=== PATIENT | female | born 1970 | race Caucasian/White ===

== ENCOUNTER 2016-11-11 14:06 | Emergency (ER) | payer OTHER ==
[~2016-11-11] VITALS: Ht 152.4 cm; Wt 87.0 kg
[~2016-11-11 14:06] MED LIST: ATOR-22 PO; ATV1 PO; BUPR100T4 PO; CYCL10TA6 PO; FERR325T51 PO; FLUO20CA35 PO; HYDR25TA4 PO; LISI5TAB PO; LORA0.5T12 PO; NRN/300 PO; OXYC1TAB3 PO; POTA1080 PO; RXC5 PO; SITA100T3 PO; SUMA50TA15 PO; VITAMIN B2 PO
[2016-11-11 14:10] VITALS: Ht 152.4 cm; Wt 87.0 kg
[2016-11-11] MEDS ORDERED: MoRPHine SULFATE 10 MG/ML CARP/VIAL IV STA (14:36)
[2016-11-11] MEDS ORDERED: ONDANSETRON INJ 2 MG/ML 2 ML VIAL IV STA (14:36)
[2016-11-11 15:18] LABS: BASO % 0.3 %; BASO ABS # 0.02 K/uL (0-0.2); COMPLETE YES; EOS % 2.2 %; HEMATOCRIT 38.4 % (37-47); IG% 0.6 %; LYMPH ABS # 2.15 K/uL (1.2-3.4); MEAN CORPUSCULAR HEMOGLOBIN 31.9 pg (25-34); MEAN CORPUSCULAR HGB CONC 33.6 g/dl (32-36); MEAN PLATELET VOLUME 9.7 fL (7.4-10.4); MONO % 8.8 %; NEUT % 57.1 %; PLATELET COUNT 330 K/uL (130-400); RED BLOOD COUNT 4.04 M/uL (4.2-5.4); WHITE BLOOD COUNT 6.93 K/uL (4.8-10.8)
[2016-11-11 15:25] LABS: URINE APPEARANCE CLEAR (CLEAR); URINE BILIRUBIN NEG (NEG); URINE COLOR DK YELLOW; URINE EPITHELIAL CELL AUTO >30 /lpf (0-5); URINE NITRITE NEG (NEG); URINE PH 6.5 (4.5-7.5); URINE SPECIFIC GRAVITY 1.037 (1.000-1.030); UROBILINOGEN NEG (NEG); ZZUR CULT IF INDIC CLEAN CATCH NO
--- NOTE | 2016-11-11 15:27 | EMERGENCY ROOM VISIT NOTE ---
History First contact with patient: 14:16 Chief Complaint: NEURO SYMPTOMS Stated Complaint: STROKE PROTOCOL Nursing Triage Summary: PT STATES MIGRAINE SINCE SAT.(POSSIBLY PASSED OUT PT STATES "I DONT KNOW IF I PASSED OUT OR WHAT I JUST COLLAPSED ON THE BED") PT REPORTS CHANGE IN MEDICATION PT STATES SHE HAS LEFT SIDED NUMBNESS BURNING IN FOOT PT STATES SHE HAS HAD SURGERY DONE BY [facility] PT STATES SHE HAS HX OF TIAS History of Present Illness The patient is a 46 year old female who presents to the Emergency Room with multiple complaints. The patient states that 4 days ago, she was camping and while she was eating she became nauseous and dizzy. She states that her family members helped her to bed. She is unsure if she just fell asleep or if she passed out. The patient has had a "migraine" since then. She additionally reports a generalized chest discomfort, nausea and dizziness. She states that 2 days ago, she developed a burning sensation in her left leg and foot. She reports that she typically has no feeling in her left leg or foot due to a previous back surgery, but she now has a feeling of painful pins and needles. She also reports that she developed pins and needles in her left arm 2 days ago. She states she has had intermittent numbness in the left side of her face. The patient reports a history of 3 separate TIAs in 2012, 2014 in 2015. She has been seen at [facility] for these and states that at one time, she was hospitalized at [facility] in [place]. She reports that when she was at [facility], she was first diagnosed with migraines. She reports left-sided back pain consistent with her chronic back pain. She has a history of kidney stones, type 2 diabetes (medication controlled), and a PFO. She is Dr. Solis for yearly echocardiograms. She denies any history of CVA but does report a family history of CVA. She reports a history of hypertension and high cholesterol. She does not smoke. The patient denies any weakness of her extremities, blurred vision, slurred speech or confusion. She denies any neck pain/stiffness, fevers/chills or recent illness. Review of Systems A complete 10 point review of systems was reviewed with the patient with pertinent positives and negatives as per history of present illness. All else were negative. Past Medical/Surgical History Medical Problems: (1) Back pain with radiation (2) Diabetes mellitus, type II (3) Hyperlipidemia (4) Hypertension (5) Kidney stones (6) Low back pain (7) Lumbar back pain (8) Lumbar stenosis with neurogenic claudication (9) Patent foramen ovale Social History Smoking Status: Never Smoker Alcohol Use: none Housing Status: lives with family Current/Historical Medications Scheduled Amitriptyline Hcl (Elavil), 25 MG PO HS Aspirin (Aspirin), 325 MG PO QAM Atorvastatin (Lipitor), 20 MG PO QPM Duloxetine HCl (Cymbalta), 60 MG PO BID Empagliflozin (Jardiance), 10 MG PO DAILY Ferrous Sulfate (Iron), 1 TAB PO DAILY Fluoxetine Hcl (Prozac), 40 MG PO DAILY Glimepiride (Amaryl), 2 MG PO DAILY Hydrochlorothiazide (Hctz), 25 MG PO QAM Lisinopril (Prinivil), 5 MG PO DAILY Magnesium Oxide (Mag-Ox), 400 MG PO DAILY Metformin Hcl (Glucophage), 1,000 MG PO BID Potassium Citrate (Alkalinizer (Potassium Citrate ER), 1 TAB PO TID Pregabalin (Lyrica), 50 MG PO TID Riboflavin (Riboflavin), 200 MG PO AMPM Sitagliptin Phosphate (Januvia), 100 MG PO DAILY Scheduled PRN Benzonatate (Tessalon Perles), 1 CAP PO TID PRN for Cough Fluticasone Propionate (Nasal) (Flonase Allergy Relief), 2 SPRAYS GLEN DAILY PRN for Nasal Congestion Guaifenesin/Codeine (Robitussin-Ac Syrup), 5 ML PO Q4 PRN for Cough Methocarbamol (Robaxin), 500 MG PO TID PRN for Muscle Spasms Allergies Coded Allergies: Sulfamethoxazole w/Trimethoprim (Verified Allergy, Unknown, Nausea, Neurologic changes, 11/11/16) Topiramate (Unverified Adverse Reaction, Intermediate, Nephrolithiasis, ) Per cardiology notes. Physical Exam Vital Signs Date Time Temp Pulse Resp B/P (MAP) Pulse Ox O2 Delivery O2 Flow Rate FiO2 11/11/16 19:09 36.8 75 18 103/64 97 11/11/16 18:10 76 18 102/61 100 Room Air 11/11/16 16:00 77 114/77 94 11/11/16 14:10 36.8 93 18 116/62 99 Room Air Physical Exam VITALS: Vitals are noted on the nurse's note and reviewed by myself. Vital signs stable. GENERAL: This is a 46-year-old female, in no acute distress, nondiaphoretic, well-developed well-nourished. SKIN: The skin was without rashes, erythema, edema, or bruising. HEAD: Normocephalic atraumatic. EARS: External auditory canals clear, tympanic membranes pearly vaughan without erythema or effusion bilaterally. EYES: Pupils equal round and reactive to light and accommodation. Conjunctivae without injection, sclerae without icterus. Extraocular movements intact. MOUTH: Mucous membranes moist. Tongue does not deviate. NECK: Supple without nuchal rigidity. No lymphadenopathy. HEART: Regular rate and rhythm without murmurs gallops or rubs. LUNGS: Clear to auscultation bilaterally without wheezes, rales or rhonchi. ABDOMEN: Positive bowel sounds x 4. Soft, nontender to palpation. MUSCULOSKELETAL: Full range of motion in all extremities. Strength 5/5 throughout bilateral upper and lower extremities. NEURO: Patient was alert and oriented to person place and time. Normal sensation to light and sharp touch. No focal neurological deficits. Normal finger to nose testing. Normal rapid alternating movements. Negative Romberg and pronator drift. Medical Decision & Procedures ER Provider Diagnostic Interpretation: CHEST ONE VIEW PORTABLE FINDINGS: Low lung volumes with mild elevation of the right hemidiaphragm. The heart is normal in size. No pleural effusions. No pneumothorax. The right basilar linear densities favor subsegmental atelectasis or scarring. The left lung is clear. IMPRESSION: Low lung volumes with right basilar subsegmental atelectasis or scarring. CT OF THE HEAD WITHOUT CONTRAST FINDINGS: No acute intracranial hemorrhage, midline shift or mass effect is present. Brain volume is normal. Ventricular system is normal. Basilar cisterns are patent. There are no extra-axial collections. Vaughan-white differentiation is maintained. There is no calvarial fracture. Visualized portions of the mastoid air cells are clear. A suspected right maxillary sinus mucous retention cyst is partially imaged on this exam. IMPRESSION: No acute intracranial findings. MRI OF THE BRAIN WITHOUT AND WITH IV CONTRAST FINDINGS: Sagittal T1, axial diffusion, proton density and T2 weighted axial, coronal FLAIR, and pre and post axial T1-weighted images were acquired. These were supplemented with post gadolinium coronal T1 weighted images. No intra or extra-axial mass lesions are visualized. There is a 2 mm focus of increased signal on diffusion-weighted images within the right posterior pontomedullary junction. This may be artifactual. There is otherwise no evidence of acute or subacute infarction. There is no evidence of ventricular dilatation. Proton density T2-weighted and FLAIR images reveal a 4 mm focus of increased FLAIR signal within the right frontal white matter. This is likely on a small vessel basis. There are no abnormal flow voids. There is no evidence of pathologic enhancement. There is a right maxilla sinus retention cyst. IMPRESSION: 1. No evidence of intracranial mass 2. An equivocal 2 mm focus of restricted water diffusion within the right posterior pontomedullary junction, likely is artifactual. There is otherwise no evidence of acute or subacute infarction 3. Nonspecific 4 mm focus of increased FLAIR signal within the right frontal white matter, likely on a small vessel basis Laboratory Results 11/11/16 15:00 Red Blood Count 4.04, Mean Corpuscular Volume 95.0, Mean Corpuscular Hemoglobin 31.9, Mean Corpuscular Hemoglobin Concent 33.6, Mean Platelet Volume 9.7, Neutrophils (%) (Auto) 57.1, Lymphocytes (%) (Auto) 31.0, Monocytes (%) (Auto) 8.8, Eosinophils (%) (Auto) 2.2, Basophils (%) (Auto) 0.3, Neutrophils # (Auto) 3.96, Lymphocytes # (Auto) 2.15, Monocytes # (Auto) 0.61, Eosinophils # (Auto) 0.15, Basophils # (Auto) 0.02 11/11/16 15:00 Test 11/11/16 15:00 White Blood Count 6.93 K/uL (4.8-10.8) Red Blood Count 4.04 M/uL (4.2-5.4) Hemoglobin 12.9 g/dL (12.0-16.0) Hematocrit 38.4 % (37-47) Mean Corpuscular Volume 95.0 fL (80-100) Mean Corpuscular Hemoglobin 31.9 pg (25-34) Mean Corpuscular Hemoglobin Concent 33.6 g/dl (32-36) Platelet Count 330 K/uL (130-400) Mean Platelet Volume 9.7 fL (7.4-10.4) Neutrophils (%) (Auto) 57.1 % Lymphocytes (%) (Auto) 31.0 % Monocytes (%) (Auto) 8.8 % Eosinophils (%) (Auto) 2.2 % Basophils (%) (Auto) 0.3 % Neutrophils # (Auto) 3.96 K/uL (1.4-6.5) Lymphocytes # (Auto) 2.15 K/uL (1.2-3.4) Monocytes # (Auto) 0.61 K/uL (0.11-0.59) Eosinophils # (Auto) 0.15 K/uL (0-0.5) Basophils # (Auto) 0.02 K/uL (0-0.2) RDW Standard Deviation 46.2 fL (36.4-46.3) RDW Coefficient of Variation 13.2 % (11.5-14.5) Immature Granulocyte % (Auto) 0.6 % Immature Granulocyte # (Auto) 0.04 K/uL (0.00-0.02) Prothrombin Time 9.6 SECONDS (9.0-12.0) Prothromb Time International Ratio 0.9 (0.9-1.1) Activated Partial Thromboplast Time 24.8 SECONDS (21.0-31.0) Partial Thromboplastin Ratio 1.0 Urine Color DK YELLOW Urine Appearance CLEAR (CLEAR) Urine pH 6.5 (4.5-7.5) Urine Specific [place] 1.037 (1.000-1.030) Urine Protein NEG (NEG) Urine Glucose (UA) 3+ (NEG) Urine Ketones NEG (NEG) Urine Occult Blood 3+ (NEG) Urine Nitrite NEG (NEG) Urine Bilirubin NEG (NEG) Urine Urobilinogen NEG (NEG) Urine Leukocyte Esterase NEG (NEG) Urine WBC (Auto) 1-5 /hpf (0-5) Urine RBC (Auto) 0-4 /hpf (0-4) Urine Hyaline Casts (Auto) 1-5 /lpf (0-5) Urine Epithelial Cells (Auto) >30 /lpf (0-5) Urine Bacteria (Auto) NEG (NEG) Urine Test NEG (NEG) Anion Gap 6.0 mmol/L (3-11) Est Creatinine Clear Calc Drug Dose 85.2 ml/min Estimated GFR () 101.8 Estimated GFR (Non- 87.8 BUN/Creatinine Ratio 14.7 (10-20) Calcium Level 8.7 mg/dl (8.5-10.1) Total Creatine Kinase 47 U/L (26-192) Creatine Kinase MB 0.8 ng/ml (0.5-3.6) Creatine Kinase MB Ratio 1.7 (0-3.0) Troponin I < 0.015 ng/ml (0-0.045) Urine Opiates Screen NEG (NEG) Urine Methadone, Qualitative NEG (NEG) Urine Barbiturates NEG (NEG) Urine Phencyclidine (PCP) Level NEG (NEG) Ur Amphetamine/Methamphetamine NEG (NEG) MDMA (Ecstasy) Screen NEG (NEG) Urine Benzodiazepines Screen NEG (NEG) Urine Cocaine Metabolite NEG (NEG) Urine Marijuana (THC) NEG (NEG) Medications Administered Medications (Trade) Dose Ordered Sig/Kaitlynn Route Start Time Stop Time Status Last Admin Dose Admin Morphine Sulfate (MoRPHine SULFATE INJ) 6 mg NOW STAT IV 11/11/16 14:36 11/11/16 14:39 DC 11/11/16 15:06 6 MG Ondansetron HCl (Zofran Inj) 4 mg NOW STAT IV 11/11/16 14:36 11/11/16 14:39 DC 11/11/16 15:05 4 MG Hydromorphone HCl (Dilaudid Inj) 1 mg NOW STAT IV 11/11/16 16:22 11/11/16 16:24 DC 11/11/16 17:04 1 MG ECG Rate (beats per minute): 74 Rhythm: normal sinus Findings: no acute ischemic change, no ectopy Change: no significant change ED Course The patient was evaluated as above. Labs were drawn and IV access was obtained. Patient was medicated with [address] of the head was performed and read by radiology as above. Patient was reevaluated and stated her pain had not been relieved at all. She relayed that Dilaudid is the only thing that works for her headaches. 1 mg Dilaudid ordered. MRI of the brain with and without contrast was performed and read by radiology as above. Discharge instructions were reviewed with the patient. The patient verbalized understanding of my assessment and treatment plan and was discharged home in good condition. Medical Decision Differential diagnosis includes CVA, TIA, atypical migraine, malignancy, infection, among others. The patient is a 46-year-old female who presents today complaining of headache and left-sided "numbness." The patient has a normal neurological exam. She has no deficits. Labs revealed no leukocytosis, anemia or electrolyte abnormalities. Urinalysis was not suggestive of infection. Urine was negative. Tox screen was negative. EKG was interpreted by myself and shows a normal sinus rhythm. CT was initially performed and was unremarkable. At that time, MRI was ordered. This was also performed and read by radiology with no acute intracranial abnormalities. I am unsure the cause of the patient' s symptoms but given her history may be atypical migraines. She does have a neurologist and I recommended that she follow-up with them this week for further evaluation. The patient's case was reviewed with Dr. Arciniega, ED attending physician, who agreed with my assessment and treatment plan. Based on the patient's presentation and work up, I feel the patient is stable for outpatient treatment. The patient was educated to return to the emergency department for any worsening of their current condition or new/concerning symptoms. She will follow up with her primary care provider and neurologist. Impression Primary Impression: Headache Departure Information Dispostion Home / Self-Care Condition GOOD Referrals Tahira Mcguire PA-C (PCP) Patient Instructions My [facility] Additional Instructions For pain control, you can use the following [id number]-[id number] medicines (if >12 yo): - Regular strength (325mg/tab) Tylenol (acetaminophen) 2 tabs every 4-6 hours as needed. Do not exceed 12 tablets in a 24 hour period. Avoid taking more than 4 grams (4000 mg) of Tylenol per day. This includes any other sources of acetaminophen you may take on a regular basis. - Regular strength (200 mg/tab) Advil (ibuprofen) 1-2 tabs every 4-6 hours as needed. Do not exceed a dose of 3200 mg per day. Follow-up with your primary care provider and neurologist this week for further evaluation. Your blood pressure was high today. You should have this rechecked by her primary care provider. Problem Qualifiers Primary Impression: Headache Headache type: unspecified Headache chronicity pattern: acute headache Intractability: not intractable Qualified Codes: R51 - Headache
--- NOTE | 2016-11-11 15:27 | DIAGNOSTIC IMAGING REPORT ---
CT OF THE HEAD WITHOUT CONTRAST CLINICAL HISTORY: Left-sided numbness. Headache. COMPARISON STUDY: No previous studies for comparison. CT DOSE: 569.73 mGy.cm TECHNIQUE: Helical axial images of the head were obtained without IV contrast. Automated exposure control was utilized for the study. FINDINGS: No acute intracranial hemorrhage, midline shift or mass effect is present. Brain volume is normal. Ventricular system is normal. Basilar cisterns are patent. There are no extra-axial collections. Vaughan-white differentiation is maintained. There is no calvarial fracture. Visualized portions of the mastoid air cells are clear. A suspected right maxillary sinus mucous retention cyst is partially imaged on this exam. IMPRESSION: No acute intracranial findings. Electronically signed by: Austyn Ozuna M.D. 11/11/2016 3:25 PM Dictated Date/Time: 11/11/2016 3:23 PM
[2016-11-11 15:33] LABS: INR 0.9 (0.9-1.1); PROTHROMBIN TIME (PATIENT) 9.6 SECONDS (9.0-12.0)
[2016-11-11 15:35] LABS: MANUAL MICROSCOPIC REQUIRED? NO; REVIEW REQ? NO
[2016-11-11 15:39] LABS: BLOOD UREA NITROGEN 12 mg/dl (7-18); BUN/CREATININE RATIO 14.7 (10-20); CALCIUM 8.7 mg/dl (8.5-10.1); CARBON DIOXIDE 30 mmol/L (21-32); CHLORIDE 103 mmol/L (98-107); GLUCOSE 110 mg/dl (70-99); POTASSIUM 3.7 mmol/L (3.5-5.1); SODIUM 139 mmol/L (136-145)
--- NOTE | 2016-11-11 15:43 | DIAGNOSTIC IMAGING REPORT ---
CHEST ONE VIEW PORTABLE HISTORY: Atypical chest pain COMPARISON: None. FINDINGS: Low lung volumes with mild elevation of the right hemidiaphragm. The heart is normal in size. No pleural effusions. No pneumothorax. The right basilar linear densities favor subsegmental atelectasis or scarring. The left lung is clear. IMPRESSION: Low lung volumes with right basilar subsegmental atelectasis or scarring. Electronically signed by: Jose A Lynch M.D. 11/11/2016 3:42 PM Dictated Date/Time: 11/11/2016 3:13 PM
[2016-11-11 15:44] LABS: CKMB/CK RATIO 1.7 (0-3.0)
[2016-11-11 16:14] LABS: BENZODIAZEPINE, URINE NEG (NEG); COCAINE,URINE NEG (NEG); PHENCYCLIDINE, URINE NEG (NEG)
[2016-11-11] MEDS ORDERED: HYDROmorphone INJ 1 MG/ML SYR IV STA (16:22)
[2016-11-11] MEDS ORDERED: FERR1TAB23 PO (16:22)
[2016-11-11] MEDS ORDERED: FLUO40CA8 PO (16:22)
[2016-11-11] MEDS ORDERED: RIBO100C PO (16:22)
[2016-11-11] MEDS ORDERED: CYM/60 PO (16:22)
[2016-11-11] MEDS ORDERED: METH500T37 PO (16:22)
[2016-11-11] MEDS ORDERED: LYR50 PO (16:22)
[2016-11-11] MEDS ORDERED: SITA100T3 PO (16:22)
[2016-11-11] MEDS ORDERED: FLUT0.15 NAE (16:31)
[2016-11-11] MEDS ORDERED: GUAISYP4 PO (16:31)
[2016-11-11] MEDS ORDERED: MAGN400T6 PO (16:31)
[2016-11-11] MEDS ORDERED: GLIM2TAB PO (16:31)
[2016-11-11] MEDS ORDERED: BENZ100C84 PO (16:31)
[2016-11-11] MEDS ORDERED: POTA1080 PO (16:31)
[2016-11-11] MEDS ORDERED: LISI-729 PO (16:31)
[2016-11-11] MEDS ORDERED: EMPA1TAB PO (16:31)
[2016-11-11] MEDS ORDERED: GADAVIST IV PRN (18:00)
--- NOTE | 2016-11-11 18:09 | DIAGNOSTIC IMAGING REPORT ---
MRI OF THE BRAIN WITHOUT AND WITH IV CONTRAST CLINICAL HISTORY: Left-sided numbness. History of prior transient ischemic attacks. Migraine, dizziness, nausea. COMPARISON STUDY: Noncontrast head CT dated 11/11/2016 TECHNIQUE: MRI of the brain was performed from the vertex to the skull base utilizing various T1 and T2 weighted sequences. Following the IV administration of 8.5 mL of Gadavist contrast, additional enhanced images were obtained. FINDINGS: Sagittal T1, axial diffusion, proton density and T2 weighted axial, coronal FLAIR, and pre and post axial T1-weighted images were acquired. These were supplemented with post gadolinium coronal T1 weighted images. No intra or extra-axial mass lesions are visualized. There is a 2 mm focus of increased signal on diffusion-weighted images within the right posterior pontomedullary junction. This may be artifactual. There is otherwise no evidence of acute or subacute infarction. There is no evidence of ventricular dilatation. Proton density T2-weighted and FLAIR images reveal a 4 mm focus of increased FLAIR signal within the right frontal white matter. This is likely on a small vessel basis. There are no abnormal flow voids. There is no evidence of pathologic enhancement. There is a right maxilla sinus retention cyst. IMPRESSION: 1. No evidence of intracranial mass 2. An equivocal 2 mm focus of restricted water diffusion within the right posterior pontomedullary junction, likely is artifactual. There is otherwise no evidence of acute or subacute infarction 3. Nonspecific 4 mm focus of increased FLAIR signal within the right frontal white matter, likely on a small vessel basis Electronically signed by: Kike Gilliam M.D. 11/11/2016 6:08 PM Dictated Date/Time: 11/11/2016 6:04 PM
[2016-11-11 19:09] VITALS: BP 103/64; PULSE 75; TEMP 36.8; O2SAT 97
[2016-11-11] MEDS ORDERED: GLC/500 PO (21:41)
[2016-11-11] MEDS ORDERED: ASPI325T45 PO (21:41)
[2016-11-11] MEDS ORDERED: AMIT25TA9 PO (21:41)
[2016-12-09] MEDS ORDERED: CYM/30 PO (13:36)
[2016-12-28] MEDS ORDERED: RXC5 PO (11:53)
== END 2016-11-11 19:10 | disposition home or self-care (01) ==
LOC: C.EDB 14:09
DX: R51 Headache (principal); R20.0 Anesthesia of skin; E11.9 Type 2 diabetes mellitus without complications; E78.5 Hyperlipidemia, unspecified; I10 Essential (primary) hypertension; Z87.442 Personal history of urinary calculi; E78.00 Pure hypercholesterolemia, unspecified; M54.5 Low back pain; M48.06 Spinal stenosis, lumbar region; Z86.73 Personal history of transient ischemic attack (TIA), and cerebral infarction without residual deficits; Z79.82 Long term (current) use of aspirin; Z79.899 Other long term (current) drug therapy

== ENCOUNTER 2016-12-28 06:03 | Inpatient (IN) | payer OTHER ==
[2016-12-09 13:40] VITALS: BMI 38.0
--- NOTE | 2016-12-09 14:19 | PAT Medication Instructions ---
Service Date Dec 09, 2016. Current Home Medication List Amitriptyline Hcl (Elavil), 25 MG PO HS Aspirin (Aspirin), 325 MG PO QAM Atorvastatin (Lipitor), 20 MG PO QPM Duloxetine HCl (Cymbalta), 1 CAP PO BID Empagliflozin (Jardiance), 10 MG PO QAM Ferrous Sulfate (Iron), 1 TAB PO QPM Fluoxetine Hcl (Prozac), 40 MG PO QAM Fluticasone Propionate (Nasal) (Flonase Allergy Relief), 2 SPRAYS GLEN DAILY PRN for Nasal Congestion Glimepiride (Amaryl), 2 MG PO QAM Hydrochlorothiazide (Hctz), 25 MG PO QAM Lisinopril (Prinivil), 5 MG PO QAM Magnesium Oxide (Mag-Ox), 400 MG PO QAM Metformin Hcl (Glucophage), 1,000 MG PO BID Methocarbamol (Robaxin), 500 MG PO TID PRN for Muscle Spasms Potassium Citrate (Alkalinizer (Potassium Citrate ER), 1 TAB PO TID Pregabalin (Lyrica), 50 MG PO TID Riboflavin (Riboflavin), 200 MG PO AMPM Sitagliptin Phosphate (Januvia), 100 MG PO QAM Medication Instructions For Your Scheduled Surgery - Check with surgeon/land appraiser for instructions: Aspirin (Aspirin), 325 MG PO QAM - Hold the following medications 48 hours prior to surgery: Metformin Hcl (Glucophage), 1,000 MG PO BID - Hold the following medications the morning of surgery: Sitagliptin Phosphate (Januvia), 100 MG PO QAM Potassium Citrate (Alkalinizer (Potassium Citrate ER), 1 TAB PO TID Magnesium Oxide (Mag-Ox), 400 MG PO QAM Lisinopril (Prinivil), 5 MG PO QAM Glimepiride (Amaryl), 2 MG PO QAM Hydrochlorothiazide (Hctz), 25 MG PO QAM Empagliflozin (Jardiance), 10 MG PO QAM Methocarbamol (Robaxin), 500 MG PO TID PRN for Muscle Spasms Riboflavin (Riboflavin), 200 MG PO AMPM - Take the following medications the morning of surgery with a sip of water: Pregabalin (Lyrica), 50 MG PO TID Fluticasone Propionate (Nasal) (Flonase Allergy Relief), 2 SPRAYS GLEN DAILY PRN for Nasal Congestion (if needed) Fluoxetine Hcl (Prozac), 40 MG PO QAM Duloxetine HCl (Cymbalta), 1 CAP PO BID - Take the following medications as scheduled the night before surgery: Pregabalin (Lyrica), 50 MG PO TID Potassium Citrate (Alkalinizer (Potassium Citrate ER), 1 TAB PO TID Fluticasone Propionate (Nasal) (Flonase Allergy Relief), 2 SPRAYS GLEN DAILY PRN for Nasal Congestion (if needed) Ferrous Sulfate (Iron), 1 TAB PO QPM Duloxetine HCl (Cymbalta), 1 CAP PO BID Atorvastatin (Lipitor), 20 MG PO QPM Amitriptyline Hcl (Elavil), 25 MG PO HS Methocarbamol (Robaxin), 500 MG PO TID PRN for Muscle Spasms Riboflavin (Riboflavin), 200 MG PO AMPM If you have any questions please call us at [phone] or [phone] or [phone]
[2016-12-28] VITALS (9 sets, daily range): BP systolic 98–130; BP diastolic 58–73; PULSE 72–85; TEMP 36.6–37; O2SAT 94–97; Ht 152.4 cm; Wt 87.0 kg
[~2016-12-28] VITALS: Ht 152.4 cm; Wt 87.0 kg
[~2016-12-28 06:03] MED LIST changes: +AMIT25TA9 PO; +ASPI325T45 PO; -ATV1 PO; -BUPR100T4 PO; +CEFAZOLIN 2000 MG/60 ML D5W IV SCH; -CYCL10TA6 PO; +CYM/30 PO; +EMPA1TAB PO; +FERR1TAB23 PO; -FERR325T51 PO; -FLUO20CA35 PO; +FLUO40CA8 PO; +FLUT0.15 NAE; +GLC/500 PO; +GLIM2TAB PO; +LACTATED RINGER'S 1000ML 1,000 ML IV SCH; +LISI-729 PO; -LISI5TAB PO; -LORA0.5T12 PO; +LYR50 PO; +MAGN400T6 PO; +METH500T37 PO; -NRN/300 PO; -OXYC1TAB3 PO; +RIBO100C PO; -RXC5 PO; -SUMA50TA15 PO; -VITAMIN B2 PO
[2016-12-28] MEDS ORDERED: ZOLP10TA PO (06:39)
[2016-12-28] MEDS ORDERED: PROPOFOL IV EMULSION 10 MG/ML 20 ML VIAL IV ONE (06:45)
[2016-12-28] MEDS ORDERED: ROCURONIUM BROMIDE 10 MG/ML 5 ML VIAL ONE (06:45)
[2016-12-28] MEDS ORDERED: DEXAMETHASONE SOD INJ 4 MG/ML VIAL ONE (06:45)
[2016-12-28] MEDS ORDERED: GLYCOPYRROLATE INJ 0.2 MG/ML VIAL ONE (06:45)
[2016-12-28] MEDS ORDERED: NEOSTIGMINE METHYLSULFATE 1 MG/ML 10ML VIAL ONE (06:45)
[2016-12-28] MEDS ORDERED: ONDANSETRON INJ 2 MG/ML 2 ML VIAL ONE (06:45)
[2016-12-28] MEDS ORDERED: LIDOCAINE HCL 2% 2 ML VIAL (20MG/ML) ONE (06:45)
[2016-12-28] MEDS ORDERED: FENTANYL CITRATE INJ 50 MCG/1 ML 2 ML VIAL ONE ×2 (06:46→09:16)
[2016-12-28] MEDS ORDERED: MIDAZOLAM HCL 1 MG/ML 2ML VIAL ONE (06:46)
[2016-12-28] MEDS ORDERED: BACITRACIN 50000 UNIT VIAL ONE (07:00)
[2016-12-28] MEDS ORDERED: BUPIVACAINE/EPINEPHRINE 0.5% MPF 1:200,000 10 ML VIAL ONE (07:00)
--- NOTE | 2016-12-28 07:24 | History & Physical Bridge Note ---
H&P Re-Evaluation Bridge Note: I have examined the patient, reviewed the History & Physical and in the interval since the performance of the History & Physical I have noted the following changes of clinical significance: No changes noted
--- NOTE | 2016-12-28 07:25 | History and Physical ---
History & Physical Date Dec 28, 2016. Chief Complaint chronic back pain History of Present Illness The patient is a 46 year old female with complaints of Past Medical/Surgical History Medical Problems: (1) Back pain with radiation (2) Diabetes mellitus, type II (3) Hyperlipidemia (4) Hypertension (5) Kidney stones (6) Low back pain (7) Lumbar back pain (8) Lumbar stenosis with neurogenic claudication (9) Patent foramen ovale Additional History Hepatic Disease: No Endocrine Disorder: No Kidney Disease: No Hypertension: No Heart Disease: No Bleeding Tendencies: No Infectious Diseases: No Allergies Coded Allergies: Sulfamethoxazole w/Trimethoprim (Verified Allergy, Unknown, Nausea, Neurologic changes,chest pain, 12/28/16) Topiramate (Verified Adverse Reaction, Intermediate, Nephrolithiasis, 12/28) Per cardiology notes. Home Medications Scheduled Amitriptyline Hcl (Elavil), 25 MG PO HS Aspirin (Aspirin), 325 MG PO QAM Atorvastatin (Lipitor), 20 MG PO QPM Duloxetine HCl (Cymbalta), 1 CAP PO BID Empagliflozin (Jardiance), 10 MG PO QAM Ferrous Sulfate (Iron), 1 TAB PO QPM Fluoxetine Hcl (Prozac), 40 MG PO QAM Glimepiride (Amaryl), 2 MG PO QAM Hydrochlorothiazide (Hctz), 25 MG PO QAM Lisinopril (Prinivil), 5 MG PO QAM Magnesium Oxide (Mag-Ox), 400 MG PO QAM Metformin Hcl (Glucophage), 1,000 MG PO BID Potassium Citrate (Alkalinizer (Potassium Citrate ER), 1 TAB PO TID Pregabalin (Lyrica), 50 MG PO TID Riboflavin (Riboflavin), 200 MG PO AMPM Sitagliptin Phosphate (Januvia), 100 MG PO QAM Scheduled PRN Fluticasone Propionate (Nasal) (Flonase Allergy Relief), 2 SPRAYS GLEN DAILY PRN for Nasal Congestion Methocarbamol (Robaxin), 500 MG PO TID PRN for Muscle Spasms Zolpidem Tartrate (Ambien), 1 TAB PO HS PRN for Sleep Physical Examination Skin: warm/dry, no rash Eyes: normal inspection, EOMI, sclerae normal ENT: normal ENT inspection, pharynx normal Head: normocephalic, atraumatic Neck: supple, no adenopathy, trachea midline Respiratory/Chest: lungs clear, normal breath sounds, no respiratory distress Cardiovascular: regular rate, rhythm, no edema, no murmur Abdomen / GI: normal bowel sounds, non tender Back: normal inspection Extremities: normal inspection, normal range of motion Neurologic/Psych: no motor/sensory deficits, alert, normal reflexes, oriented x 3 Diagnosis chronic back and leg pain Plan of Treatment SCS trial
[2016-12-28] MEDS ORDERED: KETOROLAC TROMETHAMINE 30 MG/ML VIAL ONE (08:30)
--- NOTE | 2016-12-28 08:38 | [facility] Operative Report ---
Operative Report Operative Date Dec 28, 2016. Pre-Operative Diagnosis Chronic Back and Leg Pain Post-Operative Diagnosis Same as preoperative Procedure(s) Performed #1 T10 laminotomy. #2 placement of a 16-lead dorsal column stimulator paddle with temporary leads. Surgeon Dr. Levon Rothman Plant Operations Worker Surgeon(s) Heavenly Crum PA-C Estimated Blood Loss 20ml Findings None Specimens None per surgeon Description of Procedure Patient was met with preoperatively case discussed all questions are dressed. Patient was then taken to the operative suite and after undergoing and the patient placed in a prone position on the Renan table on top of the Samir frame. The thoracal lumbar spine was prepped and draped in normal sterile fashion. With the assistance of fluoroscopy identified the T 1011 interlaminar space. Sharp dissection with the assistance of Bovie cautery performed down to and exposing the interlaminar space at T10-T11. I then performed a midline decompression at T10 11 create enough space to allow paddle lead to be placed. The lead was then placed from a caudal to cephalad fashion we verified our position with fluoroscopy. External leads were then attached sewn into position. Leads were then passed via trocar left flank. We verified their effectiveness and contact. Incision was then copiously irrigated and closed with subcutaneous Vicryl for Monocryl for final skin closure. Sterile dressing was placed the patient was awakened and taken to PACU in stable condition. Please note Heavenly Sanchez was present throughout the entire procedure involved in patient positioning complex portions of the procedure and final skin closure. I attest to the content of the Intraoperative Record and any orders documented therein. Any exceptions are noted below.
[2016-12-28] MEDS ORDERED: MAGNESIUM HYDROXIDE SUSP 30 ML UDC PO PRN (08:45)
[2016-12-28] MEDS ORDERED: ACETAMINOPHEN 500 MG TAB PO PRN (08:45)
[2016-12-28] MEDS ORDERED: ONDANSETRON INJ 2 MG/ML 2 ML VIAL IV PRN ×2 (08:45→09:30)
[2016-12-28] MEDS ORDERED: LORAZEPAM INJ 1 MG in SYRINGE 0.5 ML IV PRN (08:45)
[2016-12-28] MEDS ORDERED: FLUTICASONE PROPIONATE NA SPR 16 GM BTL NAE PRN (08:45)
[2016-12-28] MEDS ORDERED: ACETAMINOPHEN 325 MG TAB PO PRN (08:45)
[2016-12-28] MEDS ORDERED: DO NOT ADMINISTER FLU VACCINE PRN ×3 (08:45)
[2016-12-28] MEDS ORDERED: DO NOT ADMINISTER PNEUMOCOCCAL VACCINE PRN ×2 (08:45)
[2016-12-28] MEDS ORDERED: PHARMACY GLYCEMIC MGMT CONSULT PRN (09:03)
--- NOTE | 2016-12-28 09:29 | Pharmacy Progress Note ---
Glycemic Control Intl Consult Date of Service Dec 28, 2016. Scope Glycemic Pharmacist consulted by Dr Rothman on 12/28/16 for glycemic control and to write orders per [facility] inpatient glycemic control protocol Objective Weight (Kilograms): 87 Accuchecks BSG (last 24hrs): Test 12/28/16 06:25 12/28/16 09:01 Bedside Glucose 135 mg/dl (70-90) 124 mg/dl (70-90) Recent Pertinent Medications Outpatient Anti-diabetic Regimen: * Jardiance 10mg PO daily * Amaryl 2mg PO daily * Januvia 100mg PO daily * Glucophage 1000mg PO BID Risk Factors for Insulin Resistance: * Steroids: Dexamethasone 8mg perioperatively * Infection: cefazolin perioperatively * IVF: LR --> NSS * Recent Surgery: POD #0 spinal cord stimulator trial * Diet: T2DM Assessment & Plan ASSESSMENT: * ADA & AACE recommend a goal blood sugar range 140-180 mg/dl for the majority of critically ill & non-critically ill patients. However, more stringent targets may be selected in individual cases. Will utilize more stringent goal of 100-140mg/dl based on patient age & comorbidities. Additionally, tighter glycemic control is warranted to facilitate wound/infection healing. * Type 2 diabetic who is admitted postoperatively after spinal cord stim trial * BSG prior to surgery - WNL (135mg/dL, 124mg/dL) * Will utilize SQ basal/bolus insulin in addition to oral mediations while admitted for glycemic control postoperatively * parameters based on weight and a stress of 2-3 PLAN FOR INPATIENT GLYCEMIC CONTROL: * Basal insulin * Lantus 15 units SQ x1 dose today with lunch * Re-assess need for ongoing basal insulin in AM * Bolus insulin * NovoLog SQ AC and HS - Correction factor: 20mg/dL/unit - Carb ratio: 1 unit per 6g of CHO consumed - Goal: 100-140mg/dL * Oral medications: * Januvia 100 mg PO daily - start 12/29 * Amaryl 2mg PO daily - start 12/29 * Metformin 1000mg PO BID - start 12/29 * Jardiance - not stocked in pharmacy * A1c - ordered with AM labs on 12/29 * discharge recommendations dependant on this result * Please note that the plan above was derived based on current level of insulin resistance and hospital stress. These recommendations are appropriate for inpatient admission only. Plan of care upon discharge will need to be reassessed to avoid potential outpatient hypo/hyperglycemia. Thank you.
[2016-12-28] MEDS ORDERED: FENTANYL CITRATE INJ 50 MCG/1 ML 2 ML VIAL IV PRN (09:30)
[2016-12-28] MEDS ORDERED: GLUCAGON FOR INJ 1 MG VIAL SQ PRN (09:30)
[2016-12-28] MEDS ORDERED: ATROPINE SULFATE 0.1 MG/ML 5ML SYR IV PRN (09:30)
[2016-12-28] MEDS ORDERED: DEXTROSE 50% 50 ML SYR IV PRN (09:30)
[2016-12-28] MEDS ORDERED: GLUCOSE 40% GEL 15 GM TUBE PO PRN (09:30)
[2016-12-28] MEDS ORDERED: GLUCOSE 10 TABS/TUBE PO PRN (09:30)
[2016-12-28] MEDS ORDERED: EpHEDrine SULFATE INJ 50 MG/ML AMP IV PRN (09:30)
[2016-12-28] MEDS ORDERED: HYDROmorphone INJ 1 MG/ML SYR IV PRN (09:30)
--- NOTE | 2016-12-28 09:31 | Anesthesiology Progress Note ---
Anesthesia Post Op Note Date & Time Dec 28, 2016 at 09:30 Vital Signs Pain Intensity: 4 Vital Signs Past 12 Hours Date Time Temp Pulse Resp B/P (MAP) Pulse Ox O2 Delivery O2 Flow Rate FiO2 12/28/16 09:20 73 17 113/59 94 Nasal Cannula 2 12/28/16 09:10 78 15 105/63 96 Oxymask 4 12/28/16 09:00 81 16 109/69 96 Oxymask 10 12/28/16 08:50 80 14 105/67 96 Oxymask 10 12/28/16 08:43 36.7 60 16 98/78 (75) 90 Oxymask 10 12/28/16 06:39 36.8 85 16 130/58 97 Room Air Notes Mental Status: alert / awake / arousable, participated in evaluation Pt Amnestic to Procedure: Yes Nausea / Vomiting: adequately controlled Pain: adequately controlled Airway Patency, RR, SpO2: stable & adequate BP & HR: stable & adequate Hydration State: stable & adequate Anesthetic Complications: no major complications apparent
[2016-12-28] MEDS ORDERED: HYDROmorphone INJ 2 MG/ML SYR/VIAL IV PRN (09:45)
[2016-12-28] MEDS: SODIUM CHLORIDE 0.9% 1000ML 1,000 ML IV SCH ×2 (10:41→23:13)
[2016-12-28] MEDS: OXYCODONE HCL IR 5 MG TAB (IMMEDIATE RELEASE) PO PRN ×2 (10:41→16:41)
--- NOTE | 2016-12-28 11:36 | DIAGNOSTIC IMAGING REPORT ---
INTRAOPERATIVE THORACOLUMBAR SPINE SINGLE VIEW CLINICAL HISTORY: SPINAL CORD STIM TRIAL COMPARISON STUDY: No previous studies for comparison. FINDINGS: A single intraoperative fluoroscopic spot images provided for interpretation. 9 seconds of fluoroscopic time was utilized. A spinal cord stimulator is visualized. The electrodes extend cephalad to the T8-9 level. IMPRESSION: Intraoperative fluoroscopic spot image demonstrating a spinal cord stimulator Electronically signed by: Kike Gilliam M.D. 12/28/2016 11:35 AM Dictated Date/Time: 12/28/2016 11:34 AM
[2016-12-28] MEDS ORDERED: RXC5 PO (11:53)
--- NOTE | 2016-12-28 11:54 | Discharge Instructions ---
Discharge Instructions Date of Service Dec 28, 2016. Admission Reason for Admission: Chronic Pain Syndrome Discharge Discharge Diagnosis / Problem: chronic back pain Discharge Goals Goal(s): Improve function Activity Recommendations Activity Limitations: per Instructions/Follow-up section . Instructions / Follow-Up Instructions / Follow-Up ACTIVITY RECOMMENDATIONS: SELF CARE INSTRUCTIONS AFTER A LAMINECTOMY 1. No prolonged sitting (less than 30 minutes for the first 3 weeks after surgery). 2. No bending, lifting more than 5 pounds, or twisting (roll like a log when turning in bed). 3. You may shower 3 days after surgery if no drainage from wound. Thoroughly dry wound. Do not soak in the tub. 4. Please walk as much as you can for exercise. Gradually increase the distance that you walk as your endurance increases. 5. You may drive in 7-10 days if you are comfortable and no longer requiring pain medications. SPECIAL CARE INSTRUCTIONS: VERY IMPORTANT TO READ AND REVIEW A. Your surgical incision has been closed with a cosmetic suture under the skin that will dissolve in about 6 weeks. In 14 days, you can use a pair of clean scissors and cut the suture that is left outside of the skin at the ends of your incision. B. Complications are uncommon, but please contact us if you have any signs or symptoms of: 1. wound infection (fever higher than 102.5 degrees F, redness, separation of wound, drainage, or increasing pain from the incision) 2. blood clots in legs (pain, swelling, redness and warmth in legs) 3. urinary tract infection (fever higher than 102.5 degrees, burning upon urination or increased frequency of urination) 4. nerve problems (inability to walk on your toes or heels, numbness, loss of bowel or bladder control) 5. any other symptoms that concern you. C. Please call the office at if you have any concerns or questions about your operation or recovery. MANAGING PAIN AFTER SPINAL SURGERY 1. Narcotic medication is intended for short-term use and will be provided for surgical pain. Surgical pain usually lasts for a period of 4-6 weeks. Narcotic medication includes Percocet, Vicodin, Darvocet, Tylenol #3 or Lortab. 2. Longer-term pain is more appropriately treated with non-narcotic medication such as Tylenol ES. 3. Muscle spasm is not appropriately treated with narcotics. Muscle relaxers such as Soma, Flexeril or Skelaxin can be used along with Tylenol ES. 4. Remember that we all live with some "aches and pains". This is not unusual or uncommon after an injury or as we get older. 5. We will provide appropriate medication within the normal guidelines of their prescribed use. We will also be very cautious and aware of potential abuse and extended duration of patients' medication needs. 6. Please allow 2-3 days to process refills. Prescriptions will not be mailed but must be picked up at the office. FOLLOW UP VISIT: Keep your scheduled follow-up appointment. Any questions, please call the office at . Current Hospital Diet Patient's current hospital diet: Diabetes Type 2 Diet Discharge Diet Recommended Diet: Regular Diet Procedures Procedures Performed: #1 T10 laminotomy. #2 placement of a 16-lead dorsal column stimulator paddle with temporary leads. Pending Studies Studies pending at discharge: no Medical Emergencies . Who to Call and When: Medical Emergencies: If at any time you feel your situation is an emergency, please call 911 immediately. . Non-Emergent Contact Non-Emergency issues call your: Primary Care Provider . "Provider Documentation" section prepared by Levon Rothman. . VTE Core Measure Inpt VTE Proph given/why not?: Danya Tsai, SCD's
[2016-12-28] MEDS ORDERED: LANTUS PER UNIT CHARGE SQ ONE (12:30)
[2016-12-28] MEDS: INSULIN ASPART 100 UNITS/ML 3 ML PEN SC SCH ×3 (12:44→21:53)
[2016-12-28] MEDS: PREGABALIN 50 MG CAP PO SCH ×2 (13:50→21:52)
[2016-12-28] MEDS: POTASSIUM CITRATE 10 MEQ TAB PO SCH ×2 (13:51→21:53)
[2016-12-28] MEDS: HYDROmorphone INJ 1 MG/ML SYR IV PRN ×2 (13:54→21:47)
[2016-12-28] MEDS: CEFAZOLIN IV 2,000 MG in DEXTROSE 5% 50ML 50 ML IV SCH (15:18)
[2016-12-28] MEDS ORDERED: COUGH DROP (SUGAR FREE) LOZ 24 LOZ/1 BOX PO SCH (16:45)
[2016-12-28] MEDS ORDERED: COUGH DROP (SUGAR FREE) LOZ 24 LOZ/1 BOX ONE (16:49)
[2016-12-28] MEDS: DOCUSATE SODIUM 100 MG CAP PO SCH (21:52)
[2016-12-28] MEDS: AMITRIPTYLINE HCL 25 MG TAB PO SCH (21:53)
[2016-12-28] MEDS: DULOXETINE (CYMBALTA) 30 MG CAP PO SCH (21:54)
[2016-12-28] MEDS: ATORVASTATIN 20 MG TAB PO SCH (21:54)
[2016-12-29] MEDS: CEFAZOLIN IV 2,000 MG in DEXTROSE 5% 50ML 50 ML IV SCH ×2 (00:01→07:50)
[2016-12-29] MEDS: OXYCODONE HCL IR 5 MG TAB (IMMEDIATE RELEASE) PO PRN ×3 (00:05→19:35)
[2016-12-29] MEDS: ZOLPIDEM TARTRATE 10 MG TAB PO PRN ×2 (00:05→23:46)
[2016-12-29 03:40] VITALS: BP 107/65; PULSE 70; TEMP 36.6; O2SAT 95
[2016-12-29 07:07] LABS: ESTIMATED AVERAGE GLUCOSE 151 mg/dl; HA1C FLAG Normal (Normal)
[2016-12-29 07:33] VITALS: BP 148/82; PULSE 66; TEMP 36.7; O2SAT 98
[2016-12-29] MEDS: HYDROmorphone INJ 1 MG/ML SYR IV PRN ×3 (07:56→21:04)
--- NOTE | 2016-12-29 08:03 | Progress Note ---
Progress Note Date of Service Dec 29, 2016. Progress Note Patient is status post dorsal column stimulator trial placement. She states her pain is relatively well controlled today. We are still pending further adjustment to the stimulator. At this time will make her nothing by mouth after midnight and plan for possible permanent implantation Boles.
[2016-12-29] MEDS: GLIMEPIRIDE 2 MG TAB PO SCH (08:14)
[2016-12-29] MEDS: DOCUSATE SODIUM 100 MG CAP PO SCH ×2 (08:17→20:58)
[2016-12-29] MEDS: DULOXETINE (CYMBALTA) 30 MG CAP PO SCH ×2 (08:17→20:59)
[2016-12-29] MEDS: HYDROCHLOROTHIAZIDE 25 MG TAB PO SCH (08:18)
[2016-12-29] MEDS: PREGABALIN 50 MG CAP PO SCH ×3 (08:19→20:58)
[2016-12-29] MEDS: FLUOXETINE HCL 20 MG CAP PO SCH (08:20)
[2016-12-29] MEDS: MAGNESIUM OXIDE 400 MG TAB PO SCH (08:20)
[2016-12-29] MEDS: POTASSIUM CITRATE 10 MEQ TAB PO SCH ×3 (08:21→20:58)
[2016-12-29] MEDS: LISINOPRIL 5 MG TAB PO SCH (08:21)
--- NOTE | 2016-12-29 08:26 | Pharmacy Progress Note ---
Glycemic Control Progress Note Date of Service Dec 29, 2016. Scope Glycemic Pharmacist consulted for glycemic control to write orders per [facility] inpatient glycemic control protocol. Objective Accuchecks BSG (last 24hrs): Test 12/28/16 09:01 12/28/16 11:58 12/28/16 17:15 12/29/16 07:58 Bedside Glucose 124 mg/dl (70-90) 166 mg/dl (70-90) 217 mg/dl (70-90) 160 mg/dl (70-90) HbA1c: Test 12/29/16 06:02 Hemoglobin A1c 6.9 % (4.5-5.6) H Recent Pertinent Medications Outpatient Anti-diabetic Regimen: * Jardiance 10mg PO daily * Amaryl 2mg PO daily * Januvia 100mg PO daily * Glucophage 1000mg PO BID Risk Factors for Insulin Resistance: * Steroids: Dexamethasone 8mg PO x1 on 12/28/16 * Infection: cefazolin perioperatively * IVF: NSS * Recent Surgery: POD #1 spinal cord stimulator trial * Diet: T2DM Outpatient Anti-Diabetic Meds see above Assessment & Plan ASSESSMENT: 12/28/16 * ADA & AACE recommend a goal blood sugar range 140-180 mg/dl for the majority of critically ill & non-critically ill patients. However, more stringent targets may be selected in individual cases. Will utilize more stringent goal of 100-140mg/dl based on patient age & comorbidities. Additionally, tighter glycemic control is warranted to facilitate wound/infection healing. * Type 2 diabetic who is admitted postoperatively after spinal cord stim trial * BSG prior to surgery - WNL (135mg/dL, 124mg/dL) * Will utilize SQ basal/bolus insulin in addition to oral mediations while admitted for glycemic control postoperatively * parameters based on weight and a stress of 2-3 12/29/16 * BSGs slightly elevated postoperatively secondary to PO steroids (despite a dose of Lantus and NovoLog boluses) * Steroids should be wearing off (only one dose pre-operatively) and BSG this AM near goal at 160mg/dL * PO diabetic medications to start this AM (Serum creatinine normal and patient tolerating PO intake) * Did not dose Lantus this AM, however pre-lunch BSG again elevated -give one time dose with lunch * Continue NovoLog (but may need to loosen parameters as steroids wear off and PO meds take effect) * A1c resulted and shows good outpatient control PLAN FOR INPATIENT GLYCEMIC CONTROL: * Basal insulin * Lantus 8 units SQ x1 dose with lunch * Bolus insulin * NovoLog SQ AC and HS - Correction factor: 20mg/dL/unit - Carb ratio: 1 unit per 6g of CHO consumed May need to loosen CF/CR as steroids taper off --> CF: 25-30; CR: 1: 8-10 - Goal: 100-140mg/dL * Oral medications: * Januvia 100 mg PO daily - start 12/29 * Amaryl 2mg PO daily - start 12/29 * Metformin 1000mg PO BID - start 12/29 * Jardiance - not stocked in pharmacy * A1c - WNL * added to discharge instructions RECOMMENDATIONS FOR DISCHARGE: * Continue PO diabetic medications as A1c indicates appropriate glycemic control * Please note that the plan above was derived based on current level of insulin resistance and hospital stress. These recommendations are appropriate for inpatient admission only. Plan of care upon discharge will need to be reassessed to avoid potential outpatient hypo/hyperglycemia. Thank you.
--- NOTE | 2016-12-29 08:31 | Anesthesiology Progress Note ---
Anesthesia Post Op Note Date & Time Dec 29, 2016 at 08:31 Vital Signs Pain Intensity: 8.0 Vital Signs Past 12 Hours Date Time Temp Pulse Resp B/P (MAP) Pulse Ox O2 Delivery O2 Flow Rate FiO2 12/29/16 07:33 36.7 66 16 148/82 (104) 98 Room Air 12/29/16 03:40 36.6 70 16 107/65 (79) 95 Room Air 12/28/16 23:56 Room Air 12/28/16 23:44 36.7 75 16 98/59 (72) 94 Room Air Notes Mental Status: alert / awake / arousable, participated in evaluation Pt Amnestic to Procedure: Yes Nausea / Vomiting: adequately controlled Pain: adequately controlled Airway Patency, RR, SpO2: stable & adequate BP & HR: stable & adequate Hydration State: stable & adequate Anesthetic Complications: no major complications apparent
[2016-12-29] MEDS: INSULIN ASPART 100 UNITS/ML 3 ML PEN SC SCH ×5 (08:35→23:46)
[2016-12-29] MEDS: METFORMIN HCL 500 MG TAB PO SCH ×2 (08:38→18:09)
[2016-12-29] MEDS: SITAGLIPTIN 100 MG TAB PO SCH (08:38)
[2016-12-29 08:57] VITALS: O2SAT 98
[2016-12-29 11:48] VITALS: BP 118/64; PULSE 72; TEMP 36.6; O2SAT 97
[2016-12-29] MEDS ORDERED: LANTUS PER UNIT CHARGE SQ SCH (12:30)
--- NOTE | 2016-12-29 12:36 | Progress Note ---
Progress Note Date of Service Dec 29, 2016. Progress Note 46 year old female planned for permanent implant of SCS with Dr Rothman on 12/30. The patient had SCS trial under general anesthesia on 12/28. Airway management and the remainder of her anesthetic care was unremarkable. No new health changes. The patient was examined and consented for general anesthesia.
[2016-12-29] MEDS: METHOCARBAMOL 500 MG TAB PO PRN ×2 (13:07→20:59)
[2016-12-29 14:56] VITALS: BP 93/57; PULSE 73; TEMP 36.6; O2SAT 94
[2016-12-29] MEDS: ATORVASTATIN 20 MG TAB PO SCH (20:58)
[2016-12-29] MEDS: AMITRIPTYLINE HCL 25 MG TAB PO SCH (20:58)
[2016-12-29] MEDS ORDERED: NURSING DECISION MEDICATION ORDER SCH (22:00)
[2016-12-29 23:11] VITALS: BP 97/63; PULSE 72; TEMP 36.7; O2SAT 93
[2016-12-30] VITALS (8 sets, daily range): BP systolic 93–106; BP diastolic 60–74; PULSE 66–91; TEMP 36.8; O2SAT 90–96
[2016-12-30] MEDS: HYDROmorphone INJ 1 MG/ML SYR IV PRN (00:14)
[2016-12-30] MEDS: INSULIN ASPART 100 UNITS/ML 3 ML PEN SC SCH ×2 (05:43→12:32)
[2016-12-30] MEDS ORDERED: BISACODYL 5 MG TABEC PO PRN (06:00)
[2016-12-30] MEDS ORDERED: BISACODYL 10 MG SUPP PR PRN (06:00)
[2016-12-30] MEDS ORDERED: ONDANSETRON INJ 2 MG/ML 2 ML VIAL IV PRN (06:45)
[2016-12-30] MEDS ORDERED: ATROPINE SULFATE 0.1 MG/ML 5ML SYR IV PRN (06:45)
[2016-12-30] MEDS ORDERED: MoRPHine SULFATE 10 MG/ML CARP/VIAL IV PRN (06:45)
[2016-12-30] MEDS ORDERED: EpHEDrine SULFATE INJ 50 MG/ML AMP IV PRN (06:45)
[2016-12-30] MEDS ORDERED: BACITRACIN 50000 UNIT VIAL ONE (07:08)
[2016-12-30] MEDS ORDERED: BUPIVACAINE/EPINEPHRINE 0.5% MPF 1:200,000 10 ML VIAL ONE (07:09)
[2016-12-30] MEDS ORDERED: CEFAZOLIN IV 2,000 MG/60 ML D5W IV ONE (07:21)
--- NOTE | 2016-12-30 07:26 | History & Physical Bridge Note ---
H&P Re-Evaluation Bridge Note: I have examined the patient, reviewed the History & Physical and in the interval since the performance of the History & Physical I have noted the following changes of clinical significance: No changes noted Placement of SCS
[2016-12-30] MEDS ORDERED: NURSING VERBAL MED ORDER ONE (07:45)
[2016-12-30] MEDS: METFORMIN HCL 500 MG TAB PO SCH (08:03)
[2016-12-30] MEDS: DULOXETINE (CYMBALTA) 30 MG CAP PO SCH (08:03)
[2016-12-30] MEDS: DOCUSATE SODIUM 100 MG CAP PO SCH (08:03)
[2016-12-30] MEDS: GLIMEPIRIDE 2 MG TAB PO SCH (08:03)
[2016-12-30] MEDS: SITAGLIPTIN 100 MG TAB PO SCH (08:03)
[2016-12-30] MEDS: HYDROCHLOROTHIAZIDE 25 MG TAB PO SCH (08:04)
[2016-12-30] MEDS: PREGABALIN 50 MG CAP PO SCH (08:04)
[2016-12-30] MEDS: LISINOPRIL 5 MG TAB PO SCH (08:04)
[2016-12-30] MEDS: POTASSIUM CITRATE 10 MEQ TAB PO SCH (08:04)
[2016-12-30] MEDS: FLUOXETINE HCL 20 MG CAP PO SCH (08:04)
[2016-12-30] MEDS: MAGNESIUM OXIDE 400 MG TAB PO SCH (08:04)
--- NOTE | 2016-12-30 08:17 | [facility] Operative Report ---
Operative Report Operative Date Dec 30, 2016. Pre-Operative Diagnosis Chronic Back and Leg Pain Post-Operative Diagnosis Same as preoperative Procedure(s) Performed #1 removal of temporary spinal cord stimulator leads. 2 placement of rechargeable battery. #3 implantation of final spinal cord stimulator leads to the battery with testing. Surgeon Dr. Levon Rothman Physician General Internal Medicine Surgeon(s) Heavenly Crum PA-C Estimated Blood Loss 20ml Findings None Specimens None per surgeon Description of Procedure Patient was taken to the operative suite and after undergoing and the patient placed in a prone position on the Renan table on top of the Samir frame. All bony promises well-padded eyes inspected to ensure no external pressure placed upon them. The lumbar spine was prepped and draped in normal sterile fashion. I reopened the laminotomy site at T10. We identified the temporary leads. They were detached and removed. I then created a pocket over the right flank. We then used using a trocar passed the permanent leads to the right battery pocket. The leads were attached the battery and the battery was tested for efficacy. Gutters and placed in the pocket incisions were copiously irrigated and closed with subcutaneous Vicryl and 4 Monocryl for final skin closure. Sterile dressing and Steri-Strips were placed and the patient was awakened and taken to PACU in stable condition. Please note Heavenly Sanchez was present throughout the entire procedure involved in patient positioning complexed portions of the procedure and final skin closure. I attest to the content of the Intraoperative Record and any orders documented therein. Any exceptions are noted below.
[2016-12-30] MEDS: FENTANYL CITRATE INJ 50 MCG/1 ML 2 ML VIAL IV PRN ×2 (08:52→08:57)
[2016-12-30] MEDS ORDERED: POLYETHYLENE (MIRALAX) 17 GM PACK PO SCH (09:00)
--- NOTE | 2016-12-30 09:45 | Anesthesiology Progress Note ---
Anesthesia Post Op Note Date & Time Dec 30, 2016 at 09:45 Vital Signs Pain Intensity: 0.0 Vital Signs Past 12 Hours Date Time Temp Pulse Resp B/P (MAP) Pulse Ox O2 Delivery O2 Flow Rate FiO2 12/30/16 09:31 93 Nasal Cannula 2.0 12/30/16 09:30 36.8 75 14 97/63 (74) 94 Nasal Cannula 2.0 12/30/16 09:05 71 16 97/56 95 Nasal Cannula 3 12/30/16 08:55 69 16 100/59 97 Nasal Cannula 3 12/30/16 08:45 74 16 100/57 97 Mask 10 12/30/16 08:35 86 16 102/86 96 Mask 10 12/30/16 08:28 36.4 93 16 110/74 94 Mask 10 12/30/16 06:40 36.8 73 16 100/65 (77) 93 Room Air 12/29/16 23:30 Room Air 12/29/16 23:11 36.7 72 16 97/63 (74) 93 Room Air Notes Mental Status: alert / awake / arousable, participated in evaluation Pt Amnestic to Procedure: Yes Nausea / Vomiting: adequately controlled Pain: adequately controlled Airway Patency, RR, SpO2: stable & adequate BP & HR: stable & adequate Hydration State: stable & adequate Anesthetic Complications: no major complications apparent
--- NOTE | 2016-12-30 10:14 | Pharmacy Progress Note ---
Glycemic Control Progress Note Date of Service Dec 30, 2016. Scope Glycemic Pharmacist consulted for glycemic control to write orders per [facility] inpatient glycemic control protocol. Objective Accuchecks BSG (last 24hrs): Test 12/29/16 11:52 12/29/16 16:41 12/29/16 20:27 12/29/16 23:44 Bedside Glucose 170 mg/dl (70-90) 119 mg/dl (70-90) 165 mg/dl (70-90) 89 mg/dl (70-90) Test 12/30/16 05:41 12/30/16 08:34 Bedside Glucose 78 mg/dl (70-90) 86 mg/dl (70-90) HbA1c: Test 12/29/16 06:02 Hemoglobin A1c 6.9 % (4.5-5.6) H Recent Pertinent Medications The patient is currently receiving: * Basal insulin: Lantus 15 units SQ on 12/28, 8 units SQ on 12/30 * Correctional Insulin: Novolog Correction per scale ACHS Goal Range: Low 100 mg/dL - High 140 mg/dL Correction Factor: 20 mg/dL/unit * Prandial insulin: Per carb ratio of 1 unit per 6 grams CHO consumed * Oral Agents: Amaryl 2 mg PO qAM + Metformin 1g PO BID + Januvia 100 mg PO qAM Outpatient Anti-Diabetic Meds Jardiance 10mg PO daily Amaryl 2mg PO daily Januvia 100mg PO daily Glucophage 1000mg PO BID Assessment & Plan ASSESSMENT: * See progress note from 12/28/16 for more background info, in short: * Pt receiving SQ basal bolus insulin regimen for hyperglycemia secondary to baseline DM, stress s/p surgery and steroids * Patient in OR on 12/28 for trial of spinal cord stimulator * Required two doses of Lantus due to Dexamethasone 8 mg PO x 1 dose in OR * Patient returned to OR today for permanent placement of spinal cord stimulator * Patient is currently receiving an average of 24 units of insulin per day * 8 units of basal insulin * 16 units of prandial/correctional insulin * BSGs ranging 78 - 170 mg/dl over the past 24hrs * Changes needed to insulin regimen: * AM Fasting BSG = 78 mg/dl. No further Lantus will be ordered unless BSG is > 150 mg/dL x 2 consecutive checks. * Post-prandial BSGs are near goal range. Initially, aggressive CF/CR (wt- stress 3) was selected due to post-op setting and steroid administration. Will loosen CF/CR parameters at this time to avoid hypoglycemia. PLAN FOR INPATIENT GLYCEMIC CONTROL: * Hold oral anti-diabetic medications until evidence that patient is tolerating an oral diet/normal renal function * Lantus 8 units SQ x 1 dose this evening if BSG is > 150 mg/dL x 2 consecutive checks * Loosen correction factor to 25 mg/dl/unit * Loosen carb ratio to 1 unit per 9 grams CHO consumed * Continuing goal range to Low 100 mg/dL - High 140 mg/dL RECOMMENDATIONS FOR DISCHARGE: * Continue PO diabetic medications as A1c indicates appropriate glycemic control * Please note that the plan above was derived based on current level of insulin resistance and hospital stress. These recommendations are appropriate for inpatient admission only. Plan of care upon discharge will need to be reassessed to avoid potential outpatient hypo/hyperglycemia. Thank you.
[2016-12-30] MEDS: OXYCODONE HCL IR 5 MG TAB (IMMEDIATE RELEASE) PO PRN (11:35)
--- NOTE | 2016-12-30 13:30 | Discharge Summary ---
Orthopedic Discharge Summary Admission Date/Reason Dec 28, 2016 at 08:35 Chronic Pain Syndrome. Discharge Date/Disposition Dec 30, 2016 Home Diagnosis Principal Diagnosis: Chronic back and leg pain Admission Physical Exam As per Admitting History & Physical. Hospital Course Patient underwent spinal cord stimulator trial on Wednesday tolerated this well was getting good coverage of back and leg pain subsequently elected to undergo permanent implantation Wednesday. She tolerated this well and was subsequently discharged home. Discharge orders and instructions found on the chart for further review. Discharge Instructions Please refer to the electronic Patient Visit Report (Discharge Instructions) for additional information.
[2016-12-30] MEDS ORDERED: INSULIN ASPART 100 UNITS/ML 3 ML PEN SC SCH (17:15)
== END 2016-12-30 13:31 | disposition home or self-care (01) | DRG 29 ==
LOC: C.ACU 06:03 → C.3E 08:35 → ENRESERV 09:08
PROVIDERS: ADMIT Orthopaedic Surgery Orthopaedic Surgery of the Spine; ATTEND Orthopaedic Surgery Orthopaedic Surgery of the Spine
PROC: 00HV0MZ Insertion of Neurostimulator Lead into Spinal Cord, Open Approach (ICD-10-PCS; principal; 2016-12-28 07:45)
PROC: 0JH70MZ Insertion of Stimulator Generator into Back Subcutaneous Tissue and Fascia, Open Approach (ICD-10-PCS; 2016-12-30)
DX: G89.29 Other chronic pain (principal); Q21.1 Atrial septal defect; M54.9 Dorsalgia, unspecified; E11.9 Type 2 diabetes mellitus without complications; E78.5 Hyperlipidemia, unspecified; I10 Essential (primary) hypertension; Z79.899 Other long term (current) drug therapy; Z79.82 Long term (current) use of aspirin; Z87.442 Personal history of urinary calculi; Z88.0 Allergy status to penicillin; Z88.8 Allergy status to other drugs, medicaments and biological substances

== ENCOUNTER 2017-10-24 21:02 | Emergency (ER) | payer OTHER ==
[~2017-10-24] VITALS: Ht 152.4 cm; Wt 84.0 kg
[~2017-10-24 21:02] MED LIST changes: +ASPECOTC PO; -ASPI325T45 PO; -CEFAZOLIN 2000 MG/60 ML D5W IV SCH; -LACTATED RINGER'S 1000ML 1,000 ML IV SCH; +RXC5 PO; +ZOLP10TA PO
[2017-10-24 21:13] VITALS: TEMP 36.9; Ht 152.4 cm; Wt 84.0 kg
[2017-10-24] MEDS ORDERED: SODIUM CHLORIDE 0.9% 1000ML 1,000 ML IV STA (21:43)
[2017-10-24] MEDS ORDERED: ONDANSETRON INJ 2 MG/ML 2 ML VIAL IV STA (21:43)
[2017-10-24] MEDS ORDERED: KETOROLAC TROMETHAMINE 30 MG/ML VIAL IV STA (21:43)
[2017-10-24 21:51] LABS: BASO % 0.4 %; BASO ABS # 0.03 K/uL (0-0.2); EOS % 0.4 %; EOS ABS # 0.03 K/uL (0-0.5); HEMATOCRIT 37.9 % (37-47); HEMOGLOBIN 12.3 g/dL (12.0-16.0); IG# 0.03 K/uL (0.00-0.02); LYMPH % 40.5 %; LYMPH ABS # 2.97 K/uL (1.2-3.4); MEAN CELL VOLUME 88.3 fL (80-100); MEAN CORPUSCULAR HEMOGLOBIN 28.7 pg (25-34); MEAN CORPUSCULAR HGB CONC 32.5 g/dl (32-36); MEAN PLATELET VOLUME 9.6 fL (7.4-10.4); MONO % 8.7 %; MONO ABS # 0.64 K/uL (0.11-0.59); NEUT % 49.6 %; NEUT ABS # 3.64 K/uL (1.4-6.5); PLATELET COUNT 397 K/uL (130-400); RED CELL DISTRIBUTION WIDTH CV 13.8 % (11.5-14.5); RED CELL DISTRIBUTION WIDTH SD 44.4 fL (36.4-46.3); WHITE BLOOD COUNT 7.34 K/uL (4.8-10.8)
[2017-10-24 22:13] LABS: ALBUMIN 3.6 gm/dl (3.4-5.0); CALCIUM 8.8 mg/dl (8.5-10.1); CREATININE 1.2 mg/dl (0.60-1.20); POTASSIUM 4.2 mmol/L (3.5-5.1)
[2017-10-24 22:16] LABS: TOTAL PROTEIN 7.3 gm/dl (6.4-8.2)
[2017-10-24] MEDS ORDERED: ATOR-24 PO (22:37)
[2017-10-24] MEDS ORDERED: RANI150T3 PO (22:37)
[2017-10-24] MEDS ORDERED: VITB2100 PO (22:37)
[2017-10-24] MEDS ORDERED: FLUO20CA34 PO (22:37)
[2017-10-24] MEDS ORDERED: PANT40TA PO (22:37)
--- NOTE | 2017-10-24 23:00 | DIAGNOSTIC IMAGING REPORT ---
RENAL ULTRASOUND HISTORY: left flank pain, hx kidney stones COMPARISON: None. FINDINGS: Right kidney: 11.1 cm. No hydronephrosis. Normal corticomedullary differentiation and cortical thickness. A 1.4 cm exophytic hypoechoic lesion likely representing a cyst. Left kidney: 11.6 cm. No hydronephrosis. Normal corticomedullary differentiation and cortical thickness. Bladder: Decompressed and not well visualized. IMPRESSION: 1. No hydronephrosis. 2. A 1.4 cm right renal cyst. 3. The bladder is decompressed and not well visualized. Electronically signed by: Jose A Lynch M.D. 10/24/2017 10:59 PM Dictated Date/Time: 10/24/2017 10:57 PM
[2017-10-24 23:31] VITALS: BP 119/59; PULSE 78; O2SAT 97
--- NOTE | 2017-10-24 23:41 | EMERGENCY ROOM VISIT NOTE ---
History First contact with patient: 21:35 Chief Complaint: KIDNEY STONE Stated Complaint: KIDNEY STONES History of Present Illness The patient is a 47 year old female who presents to the Emergency Room with complaints of "kidney stones." The patient states that she was seen at the [place] emergency department a few weeks ago due to flank pain. She was diagnosed with a kidney infection and placed on ciprofloxacin. She states that when she followed up with her primary care provider, she was told that she never had a kidney infection but did have kidney stones on both sides. She states she has had intermittent flank pain since then. The pain is located on both sides, but is typically worse on the left. She reports she has noticed increased frequency of urination but denies any other urinary symptoms. She does report a history of kidney stones and states that they usually do not pass and she has had to have surgery for them in the past. She has seen a urologist in [place]. She reports that she has been nauseous and has vomited due to the pain. The patient also does report a history of back problems and has had a fusion in the past. She rates her overall discomfort an 8/10 states the pain is sharp. She does not identify any aggravating or alleviating factors. She has tried [id number] pain medication without relief. Review of Systems A complete 10 point review of systems was reviewed with the patient with pertinent positives and negatives as per history of present illness. All else were negative. Past Medical/Surgical History Medical Problems: (1) Back pain with radiation (2) Chronic low back pain with left-sided sciatica (3) Diabetes mellitus, type II (4) Hyperlipidemia (5) Hypertension (6) Kidney stones (7) Low back pain (8) Lumbar back pain (9) Lumbar stenosis with neurogenic claudication (10) Patent foramen ovale Social History Smoking Status: Never Smoker Alcohol Use: none Housing Status: lives with family Current/Historical Medications Scheduled Aspirin (Aspirin), 325 MG PO QAM Atorvastatin (Lipitor), 40 MG PO QPM Duloxetine HCl (Cymbalta), 1 CAP PO BID Empagliflozin (Jardiance), 10 MG PO QAM Ferrous Sulfate (Iron), 1 TAB PO QPM Fluoxetine Hcl (Prozac), 20 MG PO QAM Glimepiride (Amaryl), 2 MG PO QAM Hydrochlorothiazide (Hctz), 25 MG PO QAM Lisinopril (Prinivil), 5 MG PO QAM Magnesium Oxide (Mag-Ox), 400 MG PO QAM Metformin Hcl (Glucophage), 1,000 MG PO BID Pantoprazole (Protonix), 40 MG PO DAILY Potassium Citrate (Alkalinizer (Potassium Citrate ER), 1 TAB PO TID Pregabalin (Lyrica), 50 MG PO TID Ranitidine Hcl (Zantac), 150 MG PO BID Riboflavin (Vitamin B-2), 200 MG PO BID Sitagliptin Phosphate (Januvia), 100 MG PO QAM Scheduled PRN Zolpidem Tartrate (Ambien), 1 TAB PO HS PRN for Sleep Physical Exam Vital Signs Date Time Temp Pulse Resp B/P (MAP) Pulse Ox O2 Delivery O2 Flow Rate FiO2 10/24/17 23:31 78 20 119/59 97 10/24/17 23:17 82 97 10/24/17 23:03 81 18 109/79 99 Room Air 10/24/17 23:03 109/79 10/24/17 22:17 77 97 10/24/17 22:12 80 95 10/24/17 22:01 114/72 10/24/17 21:42 85 97 10/24/17 21:37 86 20 96 Room Air 10/24/17 21:34 105/58 10/24/17 21:13 36.9 95 18 95 Room Air Physical Exam VITALS: Vitals are noted on the nurse's note and reviewed by myself. Vital signs stable. GENERAL: This is a 39-year-old female, in no acute distress, nondiaphoretic, well-developed well-nourished. SKIN: The skin was without rashes. EARS: External auditory canals clear, tympanic membranes pearly tucker without erythema or effusion bilaterally. EYES: Pupils equal round and reactive to light and accommodation. MOUTH: Mucous membranes moist. HEART: Regular rate and rhythm without murmurs gallops or rubs. LUNGS: Clear to auscultation bilaterally without wheezes, rales or rhonchi. ABDOMEN: Positive bowel sounds x 4. Soft, obese abdomen. No tenderness to palpation. There is bilateral CVA tenderness to palpation. NEURO: Patient was alert and oriented to person place and time. Medical Decision & Procedures ER Provider Diagnostic Interpretation: RENAL ULTRASOUND HISTORY: left flank pain, hx kidney stones COMPARISON: None. FINDINGS: Right kidney: 11.1 cm. No hydronephrosis. Normal corticomedullary differentiation and cortical thickness. A 1.4 cm exophytic hypoechoic lesion likely representing a cyst. Left kidney: 11.6 cm. No hydronephrosis. Normal corticomedullary differentiation and cortical thickness. Bladder: Decompressed and not well visualized. IMPRESSION: 1. No hydronephrosis. 2. A 1.4 cm right renal cyst. 3. The bladder is decompressed and not well visualized. Laboratory Results 10/24/17 21:30 Red Blood Count 4.29, Mean Corpuscular Volume 88.3, Mean Corpuscular Hemoglobin 28.7, Mean Corpuscular Hemoglobin Concent 32.5, Mean Platelet Volume 9.6, Neutrophils (%) (Auto) 49.6, Lymphocytes (%) (Auto) 40.5, Monocytes (%) (Auto) 8.7, Eosinophils (%) (Auto) 0.4, Basophils (%) (Auto) 0.4, Neutrophils # (Auto) 3.64, Lymphocytes # (Auto) 2.97, Monocytes # (Auto) 0.64, Eosinophils # (Auto) 0.03, Basophils # (Auto) 0.03 10/24/17 21:30 Test 10/24/17 21:30 White Blood Count 7.34 K/uL (4.8-10.8) Red Blood Count 4.29 M/uL (4.2-5.4) Hemoglobin 12.3 g/dL (12.0-16.0) Hematocrit 37.9 % (37-47) Mean Corpuscular Volume 88.3 fL (80-100) Mean Corpuscular Hemoglobin 28.7 pg (25-34) Mean Corpuscular Hemoglobin Concent 32.5 g/dl (32-36) Platelet Count 397 K/uL (130-400) Mean Platelet Volume 9.6 fL (7.4-10.4) Neutrophils (%) (Auto) 49.6 % Lymphocytes (%) (Auto) 40.5 % Monocytes (%) (Auto) 8.7 % Eosinophils (%) (Auto) 0.4 % Basophils (%) (Auto) 0.4 % Neutrophils # (Auto) 3.64 K/uL (1.4-6.5) Lymphocytes # (Auto) 2.97 K/uL (1.2-3.4) Monocytes # (Auto) 0.64 K/uL (0.11-0.59) Eosinophils # (Auto) 0.03 K/uL (0-0.5) Basophils # (Auto) 0.03 K/uL (0-0.2) RDW Standard Deviation 44.4 fL (36.4-46.3) RDW Coefficient of Variation 13.8 % (11.5-14.5) Immature Granulocyte % (Auto) 0.4 % Immature Granulocyte # (Auto) 0.03 K/uL (0.00-0.02) Urine Color YELLOW Urine Appearance ERROR (CLEAR) Urine pH 7.0 (4.5-7.5) Urine Specific [place] 1.036 (1.000-1.030) Urine Protein NEG (NEG) Urine Glucose (UA) 3+ (NEG) Urine Ketones NEG (NEG) Urine Occult Blood NEG (NEG) Urine Nitrite NEG (NEG) Urine Bilirubin NEG (NEG) Urine Urobilinogen NEG (NEG) Urine Leukocyte Esterase NEG (NEG) Urine Test NEG (NEG) Anion Gap 7.0 mmol/L (3-11) Est Creatinine Clear Calc Drug Dose 55.1 ml/min Estimated GFR () 61.9 Estimated GFR (Non- 53.4 BUN/Creatinine Ratio 15.8 (10-20) Calcium Level 8.8 mg/dl (8.5-10.1) Total Bilirubin 0.2 mg/dl (0.2-1) Aspartate Amino Transf (AST/SGOT) 21 U/L (15-37) Alanine Aminotransferase (ALT/SGPT) 26 U/L (12-78) Alkaline Phosphatase 65 U/L (45-117) Total Protein 7.3 gm/dl (6.4-8.2) Albumin 3.6 gm/dl (3.4-5.0) Globulin 3.7 gm/dl (2.5-4.0) Albumin/Globulin Ratio 1.0 (0.9-2) Medications Administered Medications (Trade) Dose Ordered Sig/Kaitlynn Route Start Time Stop Time Status Last Admin Dose Admin Sodium Chloride 1,000 ml @ 999 mls/hr Q1H1M STAT IV 10/24/17 21:43 10/24/17 22:43 DC 10/24/17 22:03 999 MLS/HR Ketorolac Tromethamine (Toradol Inj) 30 mg NOW STAT IV 10/24/17 21:43 10/24/17 21:44 DC 10/24/17 22:05 30 MG Ondansetron HCl (Zofran Inj) 4 mg NOW STAT IV 10/24/17 21:43 10/24/17 21:44 DC 10/24/17 22:03 4 MG Medical Decision Differential diagnosis includes kidney stone, pyelonephritis, musculoskeletal pain, colitis, gastroenteritis, cholecystitis, pancreatitis, among others. The patient is a 47-year-old female who presents today complaining of bilateral flank pain. Labs revealed no leukocytosis, anemia or concerning electrolyte abnormalities. Urinalysis was not suggestive of infection. There was no blood in the urine. Ultrasound of the kidneys shows no hydronephrosis or evidence of stone. I was able to obtain the patient's records from the [place] emergency department. At that time, the patient had a CT scan which showed bilateral nonobstructing renal calculi but no obstructing stones. The patient's pain may be musculoskeletal. I do not feel it is due to these kidney stones. She does have a urologist and was instructed to schedule follow-up. I also advised her to follow-up with her PCP in the office this week. Based on the patient's presentation and work up, I feel the patient is stable for outpatient treatment. The patient was educated to return to the emergency department for any worsening of their current condition or new/concerning symptoms. She will follow up with her PCP/urology. Medication Reconcilliation Current Medication List: was personally reviewed by me Blood Pressure Screening Patient's blood pressure: Normal blood pressure Impression Primary Impression: Bilateral flank pain Departure Information Dispostion Home / Self-Care Condition GOOD Referrals Tahira Mcguire PA-C (PCP) Patient Instructions [facility] Additional Instructions You have been treated in the Emergency Department today for your flank pain. For pain control, you can use the following [id number] medicines (if >12 yo): - Regular strength (325mg/tab) Tylenol (acetaminophen) 2 tabs every 4-6 hours as needed. Do not exceed 12 tablets in a 24 hour period. Avoid taking more than 4 grams (4000 mg) of Tylenol per day. This includes any other sources of acetaminophen you may take on a regular basis. - Regular strength (200 mg/tab) Advil (ibuprofen) 1-2 tabs every 4-6 hours as needed. Do not exceed a dose of 3200 mg per day. Contact your primary care provider to schedule appointment. Keep your appointment with your urologist as scheduled. Return to the Emergency Department if your symptoms persist despite the treatment plan outlined above or if you develop the following symptoms: intractable pain, fever, chills, or large amounts of blood in your urine.
== END 2017-10-24 23:51 | disposition home or self-care (01) ==
LOC: C.EDB 21:03 → C.EDC 23:51
DX: R10.9 Unspecified abdominal pain (principal); E11.9 Type 2 diabetes mellitus without complications; E78.5 Hyperlipidemia, unspecified; I10 Essential (primary) hypertension; M54.5 Low back pain; N28.1 Cyst of kidney, acquired